=== PATIENT | male | born 1960 | race Caucasian/White ===

== ENCOUNTER 2017-12-24 12:11 | Day surgery (SDC) | payer BC ==
[~2017-12-24] VITALS: Ht 175.3 cm; Wt 86.4 kg
[~2017-12-24 12:11] MED LIST: ALLEGRA ALLERG180 MG PO; AMOXICILLIN 8751 TAB PO; AMOXICILLIN/CLA1 TA1 PO; ASPIRIN E.C. 8181 MG PO; CIPRO750 MG PO; EFFE25TA PO; EFFEXOR XR37.5 MG/CA PO; FERROUS SU325 MG/TAB PO; FLONASEALLERGY NS; FLOVENT DI50 MCG/Act IH; PRINIVIL20 MG PO; TRICOR 48MG48 MG PO; VIAGRA100 M1
[2017-12-24 13:08] VITALS: BP 129/83; PULSE 61; TEMP 98.5
[2017-12-24] MEDS ORDERED: CORGARD20 MG PO (13:21)
[2017-12-24] MEDS ORDERED: EFFEXOR 3737.5 MG/TA PO (13:21)
[2017-12-24] MEDS ORDERED: LASIX 20MG TABL20 MG PO (13:22)
[2017-12-24 15:26] VITALS: BP 105/61; PULSE 59
[2017-12-24] MEDS ORDERED: MOTRIN 600600 MG/TAB PO (15:33)
[2017-12-24] MEDS ORDERED: PERCOCET 325 MG1 TA2 PO (15:33)
[2017-12-24 15:41] VITALS: BP 104/65; PULSE 60
[2017-12-24 15:56] VITALS: BP 107/70; PULSE 56
[2017-12-24 16:26] VITALS: BP 116/77; PULSE 60
== END 2017-12-24 17:00 | disposition home or self-care (01) ==
LOC: SDCO 12:11
DX: C24.1 Malignant neoplasm of ampulla of Vater (principal); G47.33 Obstructive sleep apnea (adult) (pediatric); F41.9 Anxiety disorder, unspecified; I10 Essential (primary) hypertension; D64.9 Anemia, unspecified; D69.6 Thrombocytopenia, unspecified; Z90.49 Acquired absence of other specified parts of digestive tract; Z80.0 Family history of malignant neoplasm of digestive organs; Z82.49 Family history of ischemic heart disease and other diseases of the circulatory system; Z80.42 Family history of malignant neoplasm of prostate
CPT/HCPCS: C1788; J0690; J1644; J2250; J2704; J3010; J7120

== ENCOUNTER 2018-04-30 09:52 | Outpatient (RCR) | payer BC ==
[~2018-04-30] VITALS: Ht 175.3 cm; Wt 94.5 kg
[2018-04-30] VITALS (7 sets, daily range): BP systolic 104–121; BP diastolic 63–75; PULSE 62–73; TEMP 98.5
[~2018-04-30 09:52] MED LIST changes: +CORGARD20 MG PO; +EFFEXOR 3737.5 MG/TA PO; +LASIX 20MG TABL20 MG PO; +MOTRIN 600600 MG/TAB PO; +PERCOCET 325 MG1 TA2 PO
== END 2018-04-30 15:00 | disposition home or self-care (01) ==
LOC: EUO 09:52
DX: C24.1 Malignant neoplasm of ampulla of Vater (principal)
CPT/HCPCS: J7050; P9016

== ENCOUNTER 2018-05-26 07:52 | Outpatient (RCR) | payer BC ==
[2018-05-26] VITALS (8 sets, daily range): BP systolic 103–120; BP diastolic 60–71; PULSE 80–90; TEMP 97.7–98.5
== END 2018-05-26 13:47 | disposition home or self-care (01) ==
LOC: EUO 07:52
DX: C24.1 Malignant neoplasm of ampulla of Vater (principal); C78.7 Secondary malignant neoplasm of liver and intrahepatic bile duct; D69.6 Thrombocytopenia, unspecified
CPT/HCPCS: J7050; P9016

== ENCOUNTER 2018-06-10 22:31 | Inpatient (IN) | payer BC ==
[~2018-06-10] VITALS: Ht 175.3 cm; Wt 91.0 kg
[~2018-06-10 22:31] MED LIST changes: -EFFEXOR 3737.5 MG/TA PO
[2018-06-10 23:17] LABS: BASO % 0.3 % (0.0-2.0); EOS # 0.1 (0.0-0.7); EOS % 1.2 % (0-4.0); GRAN # 4.3 (1.4-6.5); LYMPH # 1.1 (1.2-3.4); LYMPH % 16.3 % (20.0-51.0); MEAN CELL VOLUME 86 fl (80.0-100.0); MEAN CORPUSCULAR HGB CONC 33 g/dl (33.0-37.0); MEAN PLATELET VOLUME 11.2 fl (7.4-10.4); MONO # 1.2 (0.1-0.6); MONO % 17.8 % (1.7-9.3); PLATELET COUNT 104 K/mm3 (130-400); RED BLOOD COUNT 2.17 M/mm3 (4.20-5.60); REDCELL DISTRIBUTION WIDTH-CV 16.2 % (11.5-14.5)
[2018-06-10 23:18] LABS: HEMATOCRIT 18.6 % (42.0-52.0); MEAN CORPUSCULAR HEMOGLOBIN 28 pg (27.0-31.0)
[2018-06-10 23:19] LABS: HEMOGLOBIN 6.1 g/dl (13.5-18.0)
[2018-06-10 23:26] LABS: ALBUMIN 2.7 gm/dL (3.5-5.0); BILIRUBIN,TOTAL 0.3 mg/dL (0.0-1.0); CREATININE, serum 0.86 mg/dL (0.66-1.25); POTASSIUM 4.6 mmol/L (3.4-5.0); TOTAL PROTEIN 5.6 gm/dL (6.4-8.2)
[2018-06-10] MEDS ORDERED: ELIQUIS 5MG PO (23:26)
[2018-06-11] VITALS (24 sets, daily range): BP systolic 11–141; BP diastolic 57–85; PULSE 71–99; TEMP 97.8–98.9
[2018-06-11 09:34] LABS: BASO % 0.2 % (0.0-2.0); EOS # 0.1 (0.0-0.7); EOS % 1.3 % (0-4.0); GRAN # 2.8 (1.4-6.5); GRAN % 61.6 % (42.2-75.2); LYMPH # 0.8 (1.2-3.4); LYMPH % 16.9 % (20.0-51.0); MEAN CELL VOLUME 89 fl (80.0-100.0); MEAN CORPUSCULAR HGB CONC 33 g/dl (33.0-37.0); MEAN PLATELET VOLUME 10.7 fl (7.4-10.4); MONO # 0.9 (0.1-0.6); MONO % 19.8 % (1.7-9.3); PLATELET COUNT 95 K/mm3 (130-400); RED BLOOD COUNT 2.86 M/mm3 (4.20-5.60); REDCELL DISTRIBUTION WIDTH-CV 15.5 % (11.5-14.5)
[2018-06-11 09:36] LABS: HEMATOCRIT 25.5 % (42.0-52.0); HEMOGLOBIN 8.3 g/dl (13.5-18.0); MEAN CORPUSCULAR HEMOGLOBIN 29 pg (27.0-31.0)
[2018-06-11 09:50] LABS: CALCIUM 8.3 mg/dL (8.4-10.2); CREATININE, serum 0.74 mg/dL (0.66-1.25); POTASSIUM 4.9 mmol/L (3.4-5.0)
[2018-06-11 13:40] LABS: HEMATOCRIT 26.3 % (42.0-52.0); HEMOGLOBIN 8.6 g/dl (13.5-18.0)
[2018-06-12] VITALS (7 sets, daily range): BP systolic 112–134; BP diastolic 60–78; PULSE 71–82; TEMP 97.4–98.7
[2018-06-12 06:01] LABS: BASO % 0.2 % (0.0-2.0); EOS # 0.1 (0.0-0.7); GRAN # 2.5 (1.4-6.5); GRAN % 62.7 % (42.2-75.2); LYMPH # 0.7 (1.2-3.4); LYMPH % 17.2 % (20.0-51.0); MEAN CELL VOLUME 90 fl (80.0-100.0); MEAN CORPUSCULAR HGB CONC 33 g/dl (33.0-37.0); MEAN PLATELET VOLUME 11.3 fl (7.4-10.4); MONO # 0.7 (0.1-0.6); MONO % 17.7 % (1.7-9.3); PLATELET COUNT 100 K/mm3 (130-400); RED BLOOD COUNT 2.76 M/mm3 (4.20-5.60); REDCELL DISTRIBUTION WIDTH-CV 15.5 % (11.5-14.5)
[2018-06-12 06:02] LABS: HEMATOCRIT 24.7 % (42.0-52.0); HEMOGLOBIN 8.1 g/dl (13.5-18.0); MEAN CORPUSCULAR HEMOGLOBIN 29 pg (27.0-31.0)
[2018-06-12 06:15] LABS: CALCIUM 8.5 mg/dL (8.4-10.2); CREATININE, serum 0.68 mg/dL (0.66-1.25); POTASSIUM 4.5 mmol/L (3.4-5.0)
[2018-06-12 13:16] LABS: MEAN CELL VOLUME 89 fl (80.0-100.0); MEAN CORPUSCULAR HGB CONC 33 g/dl (33.0-37.0); MEAN PLATELET VOLUME 10.6 fl (7.4-10.4); PLATELET COUNT 100 K/mm3 (130-400); RED BLOOD COUNT 2.85 M/mm3 (4.20-5.60); REDCELL DISTRIBUTION WIDTH-CV 15.3 % (11.5-14.5)
[2018-06-12 13:21] LABS: INR 1.2 (0.8-3.0); PROTHROMBIN TIME 13.3 SECONDS (9.7-12.8)
[2018-06-12 13:26] LABS: HEMATOCRIT 25.4 % (42.0-52.0); HEMOGLOBIN 8.4 g/dl (13.5-18.0); MEAN CORPUSCULAR HEMOGLOBIN 29 pg (27.0-31.0)
[2018-06-12 19:48] LABS: HEMATOCRIT 25.8 % (42.0-52.0); HEMOGLOBIN 8.6 g/dl (13.5-18.0)
[2018-06-13 01:48] LABS: BASO % 0.2 % (0.0-2.0); EOS # 0.1 (0.0-0.7); EOS % 0.9 % (0-4.0); GRAN # 3.8 (1.4-6.5); GRAN % 67.2 % (42.2-75.2); HEMATOCRIT 24.1 % (42.0-52.0); LYMPH # 0.9 (1.2-3.4); MEAN CELL VOLUME 89 fl (80.0-100.0); MEAN CORPUSCULAR HEMOGLOBIN 30 pg (27.0-31.0); MEAN CORPUSCULAR HGB CONC 33 g/dl (33.0-37.0); MEAN PLATELET VOLUME 10.5 fl (7.4-10.4); MONO # 0.9 (0.1-0.6); MONO % 15.3 % (1.7-9.3); PLATELET COUNT 86 K/mm3 (130-400); RED BLOOD COUNT 2.71 M/mm3 (4.20-5.60); REDCELL DISTRIBUTION WIDTH-CV 15.1 % (11.5-14.5)
[2018-06-13 01:54] LABS: CALCIUM 8.1 mg/dL (8.4-10.2); CREATININE, serum 0.75 mg/dL (0.66-1.25); POTASSIUM 4.1 mmol/L (3.4-5.0)
[2018-06-13 03:45] VITALS: BP 124/76; PULSE 71; TEMP 98.3
[2018-06-13 09:15] VITALS: BP 131/62; PULSE 69; TEMP 97.8
[2018-06-13 12:08] VITALS: BP 120/73; PULSE 73; TEMP 97.5
[2018-06-13 16:45] VITALS: BP 134/74; PULSE 75; TEMP 98
[2018-06-13 20:02] VITALS: BP 122/73; PULSE 83; TEMP 99.2
[2018-06-13 20:48] LABS: HEMATOCRIT 24.5 % (42.0-52.0); HEMOGLOBIN 8.3 g/dl (13.5-18.0)
[2018-06-14] VITALS (14 sets, daily range): BP systolic 107–137; BP diastolic 64–89; PULSE 64–78; TEMP 97–98.8
[2018-06-14 03:57] LABS: MEAN CELL VOLUME 87 fl (80.0-100.0); MEAN CORPUSCULAR HGB CONC 34 g/dl (33.0-37.0); MEAN PLATELET VOLUME 10.1 fl (7.4-10.4); PLATELET COUNT 74 K/mm3 (130-400)
[2018-06-14 03:59] LABS: HEMATOCRIT 24.3 % (42.0-52.0); HEMOGLOBIN 8.2 g/dl (13.5-18.0); MEAN CORPUSCULAR HEMOGLOBIN 29 pg (27.0-31.0)
[2018-06-15 00:24] VITALS: BP 114/67; PULSE 91; TEMP 98.5
[2018-06-15 05:18] VITALS: BP 127/71; PULSE 73; TEMP 98.5
[2018-06-15 06:17] LABS: BASO % 0.2 % (0.0-2.0); EOS # 0.1 (0.0-0.7); EOS % 1.1 % (0-4.0); GRAN # 2.8 (1.4-6.5); GRAN % 62.8 % (42.2-75.2); LYMPH # 0.9 (1.2-3.4); LYMPH % 19.4 % (20.0-51.0); MEAN CELL VOLUME 88 fl (80.0-100.0); MEAN CORPUSCULAR HGB CONC 33 g/dl (33.0-37.0); MEAN PLATELET VOLUME 11.2 fl (7.4-10.4); MONO # 0.7 (0.1-0.6); MONO % 16.3 % (1.7-9.3); PLATELET COUNT 86 K/mm3 (130-400); RED BLOOD COUNT 2.85 M/mm3 (4.20-5.60); REDCELL DISTRIBUTION WIDTH-CV 15.1 % (11.5-14.5)
[2018-06-15 06:22] LABS: HEMOGLOBIN 8.2 g/dl (13.5-18.0); MEAN CORPUSCULAR HEMOGLOBIN 29 pg (27.0-31.0)
[2018-06-15 06:30] LABS: CALCIUM 8.4 mg/dL (8.4-10.2); CREATININE, serum 0.72 mg/dL (0.66-1.25); POTASSIUM 3.9 mmol/L (3.4-5.0)
[2018-06-15 08:00] VITALS: BP 127/82; PULSE 72; TEMP 97.8
[2018-06-15] MEDS ORDERED: PROTONIX 40MG T40 MG PO (11:23)
[2018-06-15] MEDS ORDERED: FERROUSAL325 MG PO (11:23)
== END 2018-06-15 11:55 | disposition home or self-care (01) | DRG 357 ==
LOC: COL.ER 22:31 → SURG 06-11 01:00
PROVIDERS: Emergency Medicine; Internal Medicine; Internal Medicine Gastroenterology; Nurse Practitioner; Physician Assistant
PROC: 0DJ08ZZ Inspection of Upper Intestinal Tract, Via Natural or Artificial Opening Endoscopic (ICD-10-PCS; principal; 2018-06-11 15:00)
PROC: 0DJD8ZZ Inspection of Lower Intestinal Tract, Via Natural or Artificial Opening Endoscopic (ICD-10-PCS; 2018-06-11 15:00)
PROC: 06H03DZ Insertion of Intraluminal Device into Inferior Vena Cava, Percutaneous Approach (ICD-10-PCS; 2018-06-14)
DX: K29.51 Unspecified chronic gastritis with bleeding (principal); I82.411 Acute embolism and thrombosis of right femoral vein; I82.431 Acute embolism and thrombosis of right popliteal vein; C24.1 Malignant neoplasm of ampulla of Vater; D68.32 Hemorrhagic disorder due to extrinsic circulating anticoagulants; D62 Acute posthemorrhagic anemia; K76.6 Portal hypertension; T45.525A Adverse effect of antithrombotic drugs, initial encounter; F41.9 Anxiety disorder, unspecified; D69.6 Thrombocytopenia, unspecified; I85.01 Esophageal varices with bleeding; D12.8 Benign neoplasm of rectum; K57.31 Diverticulosis of large intestine without perforation or abscess with bleeding; D49.0 Neoplasm of unspecified behavior of digestive system
CPT/HCPCS: 99223-AI; 99232-AI; 99233-AI; 99239; C1880; C1894; J1644; J2250; J2704; J3010; J7120; P9016

== ENCOUNTER 2018-08-23 06:48 | Inpatient (IN) | payer BC | END 2018-08-26 15:00 | disposition home or self-care (01) | DRG 441 | LOC: COL.ER 06:48 → ICU 08:11 → SURG 17:27 | PROC: 06L38CZ Occlusion of Esophageal Vein with Extraluminal Device, Via Natural or Artificial Opening Endoscopic (ICD-10-PCS; principal; 2018-08-23) | DX: K76.6 Portal hypertension (principal); I85.11 Secondary esophageal varices with bleeding; I82.431 Acute embolism and thrombosis of right popliteal vein; C24.1 Malignant neoplasm of ampulla of Vater; D62 Acute posthemorrhagic anemia; I82.411 Acute embolism and thrombosis of right femoral vein; I10 Essential (primary) hypertension; Z79.01 Long term (current) use of anticoagulants; D69.6 Thrombocytopenia, unspecified; R73.9 Hyperglycemia, unspecified; E87.6 Hypokalemia ==

== ENCOUNTER 2018-10-17 01:15 | Observation (INO) | payer BC ==
[2018-10-17] VITALS (12 sets, daily range): BP systolic 113–144; BP diastolic 72–85; PULSE 56–71; TEMP 97.7–98.7
[~2018-10-17] VITALS: Ht 175.3 cm; Wt 59.9 kg
[~2018-10-17 01:15] MED LIST changes: +DOXYCYCLINE 10100 MG PO; +ELIQUIS 5MG PO; +FERROUSAL325 MG PO; +MAG-OX 400400 MG/TAB PO; +PROTONIX 40MG T40 MG PO
[2018-10-17 02:42] LABS: BASO % 0.2 % (0.0-2.0); EOS # 0.1 (0.0-0.7); GRAN # 2.7 (1.4-6.5); GRAN % 66.1 % (42.2-75.2); HEMOGLOBIN 10.8 g/dl (13.5-18.0); LYMPH # 0.8 (1.2-3.4); LYMPH % 19.7 % (20.0-51.0); MEAN CELL VOLUME 95 fl (80.0-100.0); MEAN CORPUSCULAR HEMOGLOBIN 31 pg (27.0-31.0); MEAN CORPUSCULAR HGB CONC 33 g/dl (33.0-37.0); MEAN PLATELET VOLUME 11.7 fl (7.4-10.4); MONO # 0.5 (0.1-0.6); MONO % 11.8 % (1.7-9.3); PLATELET COUNT 65 K/mm3 (130-400); RED BLOOD COUNT 3.46 M/mm3 (4.20-5.60); REDCELL DISTRIBUTION WIDTH-CV 14.4 % (11.5-14.5)
[2018-10-17 03:10] LABS: HEMATOCRIT 32.8 % (42.0-52.0)
[2018-10-17 03:17] LABS: INR 1.2 (0.8-3.0); PROTHROMBIN TIME 13.8 SECONDS (9.7-12.8)
[2018-10-17 03:19] LABS: ALANINE AMINOTRANSFERASE 40 U/L (21-72); ALBUMIN 3.4 gm/dL (3.5-5.0); ALKALINE PHOSPHATASE 277 U/L (50-136); ANION GAP 7 mmol/L (7-16); AST,SGOT 59 U/L (15-37); BILIRUBIN,TOTAL 1.3 mg/dL (0.0-1.0); BLOOD UREA NITROGEN 14 mg/dL (9-20); CALCIUM 8.6 mg/dL (8.4-10.2); CARBON DIOXIDE 28 mmol/L (22-30); CHLORIDE 102 mmol/L (98-107); CREATININE, serum 0.72 (0.66-1.25); GLUCOSE 148 mg/dL (74-106); LIPASE 249 U/L (23-300); POTASSIUM 3.2 mmol/L (3.4-5.0); SODIUM 137 mmol/L (137-145)
[2018-10-17 03:20] LABS: PARTIAL THROMBOPLASTIN TIME 37.6 SECONDS (26.0-37.0)
[2018-10-17 03:30] LABS: TROPONIN-I < 0.012 ng/mL (0.000-0.035)
[2018-10-17] MEDS ORDERED: LASIX 20MG TABL20 MG PO (04:47)
--- NOTE | 2018-10-17 05:30 | NUR ---
Admitted to medical room 318 from ER-with vomiting, thrombocytopenia,-- denies nausea/voimitng at this time- was given zofran/protonix in ER. VSS. understands need urine for urinalysis-given urinal. NPO, PAC to right chest.
--- NOTE | 2018-10-17 08:05 | NUR ---
DR. CHAVEZ IN TO SEE PATIENT FOR CONSULT. ANESTHESIA PAGED AND NOTIFIED OF ONSULT FOR EGD.
--- NOTE | 2018-10-17 08:22 | NUR ---
CONSENT FORM FOR EGD SIGNED AND ON PATIENT CHART.
[2018-10-17 08:24] LABS: COLLECTION METHOD CLEAN CATCH
[2018-10-17 08:32] LABS: PH 6 (5-8); SQUAMOUS EPITHELIAL None Seen /hpf; URINE APPEARANCE Clear; URINE BACTERIA None Seen /hpf; URINE BILIRUBIN Negative (NEGATIVE); URINE BLOOD Negative (NEGATIVE); URINE COLOR Yellow; URINE GLUCOSE Negative (NEGATIVE); URINE KETONE Negative (NEGATIVE); URINE LEUKOCYTE ESTERASE Negative (NEGATIVE); URINE NITRATE Negative (NEGATIVE); URINE PROTEIN(semi-quant) Negative (NEGATIVE); URINE RBC 0-2 /hpf; URINE UROBILINOGEN Negative (NEGATIVE)
--- NOTE | 2018-10-17 08:50 | NUR ---
PATIENT RESTING IN BED. PATIENT A&OX4. SEE ASSESSMENT. PATIENT NPO AFTER MIDNIGHT FOR PROCEDURE. PATIENT'S PRE-OP FLUIDS TO GRAVITY TUBING AND INFUSING TO RIGHT CHEST TOBIN CATH. CONSENT SIGNED AND ON PATIENT CHART. PATIENT TAKEN TO PERIOP VIA BED BY OLIVIA PALM. WILL WAIT FOR PATIENT ARRIVAL BACK TO ROOM 318.
--- NOTE | 2018-10-17 09:50 | NUR ---
PATIENT ARRIVED BACK TO ROOM 318 VIA BED FROM PACU BY OLIVIA PALM. PATIENT SETTELED INTO ROOM. PATIENT IS DROWSY BUT AROUSES EASILY TO NAME. PATIENT DENIES PAIN AT THIS TIME. POST-OP VSS. WILL CONTINUE TO MONITOR.
--- NOTE | 2018-10-17 11:05 | NUR ---
PATIENT POST-OP VITAL SIGNS COMPLETE. PATIENT TOLERATING CLEAR LIQUIDS WITHOUT ANY COMPLAINTS OF N/V.
[2018-10-17 13:20] LABS: HEMOGLOBIN 10.4 g/dl (13.5-18.0)
[2018-10-17 13:21] LABS: HEMATOCRIT 32.2 % (42.0-52.0)
--- NOTE | 2018-10-17 19:17 | NUR ---
Report received from Lizett BAKER
--- NOTE | 2018-10-17 20:39 | NUR ---
Resting in bed. Assessment complete. Lungs clear. Heart sounds normal. Bowels active x4. Pulses strong throughout. No edema. Denies pain. Port to right chest infusing without complications. Denies pain. Denies needs at this time. Call light in reach. Tolerating clear liquids without any nausea or vomiting.
--- NOTE | 2018-10-18 00:30 | NUR ---
Resting in bed. Denies needs. Denies pain. Call light in reach.
[2018-10-18 04:42] VITALS: BP 115/17; BP 115/71; PULSE 64; TEMP 98.6
--- NOTE | 2018-10-18 06:16 | NUR ---
Patient had uneventful night. Slept well. Denies needs at this AM. Call light in reach.
[2018-10-18 06:24] LABS: BASO % 0.3 % (0.0-2.0); EOS # 0.1 (0.0-0.7); EOS % 2.4 % (0-4.0); GRAN # 2.2 (1.4-6.5); HEMOGLOBIN 10.1 g/dl (13.5-18.0); LYMPH % 26.9 % (20.0-51.0); MEAN CELL VOLUME 97 fl (80.0-100.0); MEAN CORPUSCULAR HEMOGLOBIN 32 pg (27.0-31.0); MEAN CORPUSCULAR HGB CONC 33 g/dl (33.0-37.0); MEAN PLATELET VOLUME 11.4 fl (7.4-10.4); MONO # 0.5 (0.1-0.6); MONO % 12.1 % (1.7-9.3); PLATELET COUNT 61 K/mm3 (130-400); RED BLOOD COUNT 3.21 M/mm3 (4.20-5.60); REDCELL DISTRIBUTION WIDTH-CV 14.4 % (11.5-14.5)
[2018-10-18 06:39] LABS: CALCIUM 8.1 mg/dL (8.4-10.2); CREATININE, serum 0.73 (0.66-1.25); POTASSIUM 3.9 mmol/L (3.4-5.0)
--- NOTE | 2018-10-18 07:14 | NUR ---
Report given to OLIVIA Miller
[2018-10-18 07:32] VITALS: BP 130/82; PULSE 69; TEMP 97.9
--- NOTE | 2018-10-18 09:15 | NUR ---
Patient resting in bed upon entry. Shift assessment complete. Pulses strong bilaterally. Lung sullivan clear throughout. Patient denies C/P, dizziness, SOB, palpitations, numbness, tingling, N/V. Heart sounds normal, bowel sounds audible in all quadrants. Call light within reach, denies needs at this time.
--- NOTE | 2018-10-18 11:37 | NUR ---
First visit from the lot associate. No needs right now.
[2018-10-18 11:41] VITALS: BP 121/71; PULSE 60; TEMP 97.9
--- NOTE | 2018-10-18 14:00 | NUR ---
patient requesting shower. Fluids unhooked, radha cath covered. no other needs at this time.
--- NOTE | 2018-10-18 14:24 | NUR ---
SW met with patient to discuss discharge planning. 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 Patients PCP is Dr Mcclure and he obtains his medcations from [facility] in [facility]. Patient is independent in his ADLs but does have a walker if needed. There are no anticipated discharge needs at this time.
[2018-10-18 16:39] VITALS: BP 112/74; PULSE 58; TEMP 98.4
[2018-10-18 19:27] VITALS: BP 130/72; PULSE 62; TEMP 98.2
--- NOTE | 2018-10-18 19:27 | NUR ---
Resting in bed. Assessment complete. Left lower lobe crackles present otherwise clear. Heart sounds normal. Bowels active x4. Pulses strong throughout. No edema noted. Port to right chest infusing without complications, normal saline at 75ml/hr and sandostatin at 50.1 ml/hr. Denies pain. Denies needs at this time. Call light in reach.
--- NOTE | 2018-10-18 19:58 | NUR ---
report given to OLIVIA bryant.
[2018-10-19 00:21] VITALS: BP 118/68; PULSE 58; TEMP 98.5
--- NOTE | 2018-10-19 00:44 | NUR ---
Resting in bed. Denies needs. Denies pain. Call light in reach.
--- NOTE | 2018-10-19 04:23 | NUR ---
Resting in bed. Denies needs. Call light in reach.
[2018-10-19 05:48] VITALS: BP 117/69; PULSE 61; TEMP 98.1
--- NOTE | 2018-10-19 06:21 | NUR ---
Patient had uneventful night. Denies needs this AM. Call light in reach.
[2018-10-19 06:28] LABS: BASO % 0.7 % (0.0-2.0); EOS # 0.1 (0.0-0.7); EOS % 3.1 % (0-4.0); GRAN # 1.6 (1.4-6.5); GRAN % 53.2 % (42.2-75.2); LYMPH # 0.8 (1.2-3.4); LYMPH % 28.5 % (20.0-51.0); MEAN CELL VOLUME 96 fl (80.0-100.0); MEAN CORPUSCULAR HGB CONC 32 g/dl (33.0-37.0); MEAN PLATELET VOLUME 11.4 fl (7.4-10.4); MONO # 0.4 (0.1-0.6); MONO % 14.2 % (1.7-9.3); PLATELET COUNT 62 K/mm3 (130-400); REDCELL DISTRIBUTION WIDTH-CV 14.4 % (11.5-14.5)
[2018-10-19 06:32] LABS: INR 1.3 (0.8-3.0); PROTHROMBIN TIME 14.2 SECONDS (9.7-12.8)
[2018-10-19 06:33] LABS: HEMATOCRIT 29.8 % (42.0-52.0); HEMOGLOBIN 9.5 g/dl (13.5-18.0); MEAN CORPUSCULAR HEMOGLOBIN 31 pg (27.0-31.0)
[2018-10-19 06:40] LABS: ALBUMIN 2.8 gm/dL (3.5-5.0); BILIRUBIN,TOTAL 0.7 mg/dL (0.0-1.0); CALCIUM 8.1 mg/dL (8.4-10.2); CREATININE, serum 0.73 (0.66-1.25); POTASSIUM 3.7 mmol/L (3.4-5.0); TOTAL PROTEIN 6.1 gm/dL (6.4-8.2)
--- NOTE | 2018-10-19 07:16 | NUR ---
Report given to OLIVIA Miller
[2018-10-19 07:24] VITALS: BP 124/79; PULSE 65; TEMP 98.4
[2018-10-19] MEDS ORDERED: PROTONIX 40MG T40 MG PO (08:47)
--- NOTE | 2018-10-19 10:00 | NUR ---
Patient sitting in bed watching tv upon entry. Lung sounds clear thoughout, heart sounds normal. Bowel sounds present X4. No edema. patient denies SOB, dizziness, pain, numbness, tingling. pulses strong bilaterally. call light within reach. denies other needs at this time.
[2018-10-19 11:09] VITALS: BP 123/75; PULSE 62; TEMP 98.3
--- NOTE | 2018-10-19 12:11 | NUR ---
Discharge instructions discussed. Patient verbalizes understanding. Portacath deaccessed. Site cleaned and bandaid placed over, no bleeding or complications. Patient escorted out by paolo Rm.
== END 2018-10-19 12:12 | disposition home or self-care (01) ==
LOC: COL.ER 01:15 → MEDICAL 04:09
PROVIDERS: Emergency Medicine; Internal Medicine Gastroenterology; Nurse Practitioner Family; ADMIT Family Medicine
DX: I85.00 Esophageal varices without bleeding (principal); K92.2 Gastrointestinal hemorrhage, unspecified; K31.84 Gastroparesis; K31.9 Disease of stomach and duodenum, unspecified; D64.9 Anemia, unspecified; C24.1 Malignant neoplasm of ampulla of Vater; D69.6 Thrombocytopenia, unspecified; I10 Essential (primary) hypertension; E87.6 Hypokalemia; Z86.718 Personal history of other venous thrombosis and embolism; Z79.51 Long term (current) use of inhaled steroids; Z82.5 Family history of asthma and other chronic lower respiratory diseases; Z88.8 Allergy status to other drugs, medicaments and biological substances; Z90.49 Acquired absence of other specified parts of digestive tract; K76.6 Portal hypertension; G47.33 Obstructive sleep apnea (adult) (pediatric); F32.9 Major depressive disorder, single episode, unspecified; F41.9 Anxiety disorder, unspecified
CPT/HCPCS: 99232-AI; C9113; G0378; J2250; J2354; J2405; J2704; J3480; J7030; J7040

== ENCOUNTER 2018-12-26 15:50 | Emergency (ER) | payer BC ==
[~2018-12-26] VITALS: Ht 175.3 cm; Wt 79.5 kg
[2018-12-26 16:40] VITALS: TEMP 98.1
[2018-12-26 17:58] LABS: BASO % 0.3 % (0.0-2.0); EOS # 0.1 (0.0-0.7); EOS % 0.8 % (0-4.0); GRAN # 4.4 (1.4-6.5); GRAN % 62.2 % (42.2-75.2); HEMOGLOBIN 11.5 g/dl (13.5-18.0); LYMPH # 1.7 (1.2-3.4); LYMPH % 24.4 % (20.0-51.0); MEAN CELL VOLUME 90 fl (80.0-100.0); MEAN CORPUSCULAR HEMOGLOBIN 33 pg (27.0-31.0); MEAN CORPUSCULAR HGB CONC 37 g/dl (33.0-37.0); MEAN PLATELET VOLUME 11.6 fl (7.4-10.4); MONO # 0.8 (0.1-0.6); MONO % 11.6 % (1.7-9.3); PLATELET COUNT 185 K/mm3 (130-400); REDCELL DISTRIBUTION WIDTH-CV 16.4 % (11.5-14.5)
[2018-12-26 17:59] LABS: HEMATOCRIT 31.4 % (42.0-52.0)
[2018-12-26 18:02] LABS: INR 1.8 (0.8-3.0); PROTHROMBIN TIME 21.5 SECONDS (9.7-12.8)
[2018-12-26 18:13] LABS: ALANINE AMINOTRANSFERASE 28 U/L (21-72); ALBUMIN 3.3 gm/dL (3.5-5.0); ALKALINE PHOSPHATASE 343 U/L (50-136); ANION GAP 13 mmol/L (7-16); AST,SGOT 61 U/L (15-37); BILIRUBIN,TOTAL 24.3 mg/dL (0.0-1.0); BLOOD UREA NITROGEN 20 mg/dL (9-20); C-REACTIVE PROTEIN 5.6 mg/dL (0.0-0.9); CALCIUM 9.3 mg/dL (8.4-10.2); CARBON DIOXIDE 23 mmol/L (22-30); CHLORIDE 98 mmol/L (98-107); CREATININE, serum 1.15 (0.66-1.25); GLUCOSE 90 mg/dL (74-106); LIPASE 86 U/L (23-300); POTASSIUM 4.3 mmol/L (3.4-5.0); SODIUM 133 mmol/L (137-145); TOTAL PROTEIN 8.1 gm/dL (6.4-8.2)
[2018-12-26 18:27] LABS: TROPONIN-I < 0.012 ng/mL (0.000-0.035)
[2018-12-26] MEDS ORDERED: FERROUSAL325 MG PO (19:36)
[2018-12-26] MEDS ORDERED: AMOXICILLIN 8751 TAB PO (19:38)
[2018-12-26] MEDS ORDERED: ALDACTONE50 MG PO (19:38)
[2018-12-26] MEDS ORDERED: ATARAX 25MG25 MG/TAB PO (19:38)
[2018-12-26] MEDS ORDERED: LEVAQUIN 5500 MG/TA1 PO (19:38)
[2018-12-26 19:43] LABS: COLLECTION METHOD CLEAN CATCH
[2018-12-26 19:52] LABS: MUCOUS Present /lpf; PH 7 (5-8); SQUAMOUS EPITHELIAL 0-2 /hpf; URINE APPEARANCE Hazy; URINE BACTERIA Rare /hpf; URINE BILIRUBIN Positive (NEGATIVE); URINE BLOOD Negative (NEGATIVE); URINE COLOR Amber; URINE GLUCOSE Negative (NEGATIVE); URINE KETONE Negative (NEGATIVE); URINE LEUKOCYTE ESTERASE Negative (NEGATIVE); URINE NITRATE Negative (NEGATIVE); URINE PROTEIN(semi-quant) Negative (NEGATIVE); URINE RBC 0-2 /hpf; URINE UROBILINOGEN >=4.0 mg/dL (NEGATIVE)
[2018-12-26 21:46] VITALS: BP 110/74; PULSE 61
== END 2018-12-26 22:10 | disposition short-term general hospital (02) ==
LOC: COL.ER 15:50
PROVIDERS: Emergency Medicine
DX: C24.1 Malignant neoplasm of ampulla of Vater (principal); R17 Unspecified jaundice; I10 Essential (primary) hypertension; Z86.718 Personal history of other venous thrombosis and embolism; Z79.51 Long term (current) use of inhaled steroids
CPT/HCPCS: J2405; J3010; J7030; Q9967